=== PATIENT | female | born 1970 | race Caucasian/White ===

== ENCOUNTER 2016-10-14 15:15 | Inpatient (IN) ==
[2016-10-14] MEDS ORDERED: DUONEB (A & A) INH ONE (15:42)
[2016-10-14 16:09] LABS: BASO% 0.3 % (0.0-0.8); EOS# 0.01 X1000 (0.0-0.7); EOS% 0.1 % (0.0-10.0); HEMATOCRIT 41.4 % (37.0-47.0); HEMOGLOBIN 14.3 g/dL (12.0-16.0); IMM GRAN# 0.06 X1000 (0.0-0.04); IMM GRAN% 0.5 % (0.0-0.5); LYMPH# 1.48 X1000 (1.2-3.4); LYMPH% 11.9 % (20.5-51.1); MANUAL DIFF NEEDED? YES; MCH 32.5 PG (27-31); MCHC 34.5 g/dL (33-37); MCV 94.1 FL (81-99); MONO# 0.69 X1000 (0.11-0.59); MONO% 5.6 % (1.7-9.3); MPV 11.5 FL (7.4-10.4); NEUT% 81.6 % (42.2-75.2); PLT 176 X1000 (130-400)
[2016-10-14 16:27] LABS: AGAP 11; ALBUMIN 3.4 g/dL (3.5-5.0); ALKALINE PHOSPHATASE 75 U/L (32-104); BUN 18 mg/dL (8-22); CALCIUM 9.3 mg/dL (8.8-10.2); CHLORIDE 99 mmol/L (98-107); COSMO 271; GOT 22 U/L (10-30); GPT 23 U/L (10-36); POTASSIUM 3.1 mmol/L (3.5-5.1); SODIUM 134 mmol/L (136-145); TCO2 24 mmol/L (25-35)
[2016-10-14 16:33] LABS: LYMPHS 10 % (21-51); MONO 1 % (1-9)
--- NOTE | 2016-10-14 17:22 | Diag Imaging Result Document ---
PROCEDURE NAME: CHEST-2 VIEWS - 10/14/2016 CHEST, 2 VIEWS: Compared with 10/04/2015. Heart size is normal. The lungs appear essentially clear. There is no consolidation, pleural effusion, or pneumothorax identified. There are slight thoracic levoscoliosis and mild spondylosis noted. IMPRESSION: No evidence of acute disease.
--- NOTE | 2016-10-14 17:33 | PROVIDER DOCUMENTATION ---
HPI-Respiratory General - General Chief Complaint: Shortness of Breath Stated Complaint: "HAS PNEUMONIA" Time Seen by Provider: 10/14/16 15:41 Source: patient Allergies/Adverse Reactions: Patient Allergies Allergy/AdvReac Type Severity Reaction Status Date / Time codeine Allergy Mild itch Verified 07/07/13 17:31 Home Medications: Home Medication List Medication Instructions Recorded Confirmed Last Taken Type CephALEXIN [Keflex] 500 mg PO TID #30 bottle 07/07/13 Unknown Rx Fluoxetine [Prozac] 10 mg PO DAILY 07/07/13 07/07/13 07/07/13 History Hydrocodone/Acetaminophen [Lortab 1 each PO Q4-6H PRN PRN #0 tablet 07/07/13 Unknown Rx 5-500 Tablet] Meloxicam [Mobic] 10 mg PO 07/07/13 07/07/13 07/07/13 History Albuterol 2.5MG/Ipratrop 0.5MG 3 ml INH Q4-6H PRN PRN #14 neb 10/04/15 Unknown Rx [Duoneb] Prednisone 20 mg PO DAILY #12 tablet 10/04/15 Unknown Rx - History of Present Illness-Resp Nature of Presenting Problem: Pt is 46 y/o F presents to the ED with SOB. Pt states cough. Pt states being to two walk in clinics in the last week. Pt states receiving steroid shot and levaquin. Pt denies F. Pt states symptoms have been present for one week. Quality of Pain: reports: aching Severity in ED: reports: mild Onset/Duration: reports: 1 week ago Timing: reports: still present, intermittent Exposure: reports: unknown cause Cough Quality/Degree: reports: moderate Episode Frequency: occasional episodes Current Respiratory Medication Therapy: Initiated see nurses note Modifying Factors: improves with: nothing Associated Symptoms: reports: cough, shortness of breath. denies: chest pain/ soreness, dizziness, earache, facial pain, fever/chills, flu-like symptoms, headache, heart racing, hurts to breathe, hyperventilating, lightheadedness, muscle/bodyaches, nasal congestion, nasal drainage, sinus pain, short of breath , sore throat, sweaty, wheezing Similar Symptoms Previously?: Yes Recently seen or treated by another doctor?: Yes Review of Systems - Adult - REVIEW OF SYSTEMS - ADULT Constitutional: denies: chills, fever Eyes: denies: blurred vision, double vision Ears, Nose, Mouth & Throat: denies: ear pain, nose pain, throat pain Cardiovascular: denies: chest pain, heart murmur, irregular heart rate Respiratory: reports: cough, shortness of breath. denies: wheezing Gastrointestinal: denies: abdominal pain, diarrhea, nausea, vomiting Genitourinary: denies: dysuria, hematuria Musculoskeletal: denies: bone pain, joint pain, neck pain Integumentary: denies: hives, itching Neurological: denies: dizziness/vertigo, headache/migraines Psychiatric: reports: no symptoms reported Endocrine: reports: no symptoms reported Hematologic/Lymphatic: reports: no symptoms reported Allergic/Immunologic: reports: no symptoms reported All Other Systems: Reviewed and Negative Past History - Adult - PAST MEDICAL HISTORY-ADULT Review of Records: reports: Nursing Assessment Review, Medications Reviewed, Social history reviewed & non-contributory. Major Childhood Illnesses: reports: denies history Cardiovascular: reports: denies history Respiratory: reports: COPD Gastrointestinal: reports: denies history Obstetrical/Gynecological: reports: denies history Genitourinary: reports: denies history Musculoskeletal: reports: denies history Neurological: reports: denies history Endocrine/Immune: reports: denies history Other Conditions: reports: denies history - PRIOR SURGERIES/PROCEDURES Surgical/Procedure History: reports: reviewed, not pertinent - IMMUNIZATION STATUS Childhood Immunizations: See Nurse Assessment Flu Vaccine: See Nurse Assessment - FAMILY HISTORY Family History: reviewed, not pertinent - SOCIAL HISTORY Smoking: cigarettes, less than 1 pack/day Provider spent 3-5 mins advising pt. on dangers of tobacco.: Discussed manners to quit use, and f/u contacts for add'l counseling. Substance Use: denies Living Situation: family Physical Exam-General - PHYSICAL EXAM-ADULT Initial Vital Signs Reviewed: Yes - CONSTITUTIONAL General Appearance: appears well, alert, no apparent distress - EYES Eyes: PERRL/EOMI, pink conjunctivae, fundi clear, no AV nicking - HEAD, EARS, NOSE, MOUTH & THROAT HENMT: normocephalic/atraumatic, moist mucous membranes, normal ENT inspection, TMs normal, pharynx normal - NECK Neck: non-tender, full range of motion, supple, normal inspection - RESPIRATORY Respiratory: chest non-tender, normal breath sounds, no pleuratic chest pain, no respiratory distress, no accessory muscle use, rhonchi (bilateral) - CARDIOVASCULAR Cardiovascular: normal peripheral pulses, regular rate, rhythm, no edema, no gallop, no JVD, no murmur - GASTROINTESTINAL (ABDOMEN) Abdominal Exam: normal bowel sounds, non tender, soft, no organomegaly, no pulsatile mass - LYMPHATIC Lymphatic: no adenopathy - MUSCULOSKELETAL Back Exam: normal inspection, no CVA tenderness, no vertebral tenderness Extremity: normal range of motion, non-tender, normal gait, normal inspection, no pedal edema - SKIN Integumentary: normal color, normal turgor, warm/dry - NEUROLOGIC Neurologic: electric sign wirer II-XII nml as tested, grossly normal, no motor/sensory deficits - PSYCHIATRIC Psych/Mental Status: normal mood/affect, normal thought content, normal thought process, oriented x 3 Progress - PLAN OF CARE/RESULTS Progress/Plan/Lab Results: Laboratory Tests 10/14/16 10/14/16 10/14/16 15:40 15:40 15:40 WBC 12.42 H RBC 4.40 Hgb 14.3 Hct 41.4 MCV 94.1 MCH 32.5 H MCHC 34.5 RDW Std Deviation 12.0 Plt Count 176 MPV 11.5 H Immature Gran % (Auto) 0.5 Neut % (Auto) 81.6 H Lymph % (Auto) 11.9 L Hamilton % (Auto) 5.6 Eos % (Auto) 0.1 Baso % (Auto) 0.3 Immature Gran # (Auto) 0.06 H Neut # (Auto) 10.14 H Lymph # (Auto) 1.48 Hamilton # (Auto) 0.69 H Eos # (Auto) 0.01 Baso # (Auto) 0.04 Segmented Neutrophils 88 H Lymphocytes 10 L Monocytes 1 Atypical Lymphocytes 1.0 D-Dimer Sodium 134 L Potassium 3.1 L Chloride 99 Carbon Dioxide 24 L Anion Gap 11 BUN 18 Creatinine 0.7 Estimated GFR/1.73 m2 > 60 BUN/Creatinine Ratio 26 Glucose 121 H Calculated Osmolality 271 Calcium 9.3 Total Bilirubin 0.20 AST 22 ALT 23 Alkaline Phosphatase 75 Total Protein 7.0 Albumin 3.4 L Globulin 4.0 Albumin/Globulin Ratio 1.0 Plasma Lactate 2.0 10/14/16 17:12 WBC RBC Hgb Hct MCV MCH MCHC RDW Std Deviation Plt Count MPV Immature Gran % (Auto) Neut % (Auto) Lymph % (Auto) Hamilton % (Auto) Eos % (Auto) Baso % (Auto) Immature Gran # (Auto) Neut # (Auto) Lymph # (Auto) Hamilton # (Auto) Eos # (Auto) Baso # (Auto) Segmented Neutrophils Lymphocytes Monocytes Atypical Lymphocytes D-Dimer 0.29 Sodium Potassium Chloride Carbon Dioxide Anion Gap BUN Creatinine Estimated GFR/1.73 m2 BUN/Creatinine Ratio Glucose Calculated Osmolality Calcium Total Bilirubin AST ALT Alkaline Phosphatase Total Protein Albumin Globulin Albumin/Globulin Ratio Plasma Lactate Orders Category Date Time Status Saline Loc NOW Care 10/14/16 15:19 Active CHEST-2 VIEWS [RAD] Stat Exams 10/14/16 15:19 Completed SINUSES KAM VIEW ONLY [RAD] Stat Exams 10/14/16 16:31 Taken ABG [RESP] Routine Lab 10/14/16 17:12 Ordered BLOOD CULTURE [BLDCUL] Stat Lab 10/14/16 15:19 Ordered CBC WITH DIFF [HEME] Stat Lab 10/14/16 15:40 Completed COMPREHENSIVE METABOLIC PANEL [CHEM] Stat Lab 10/14/16 15:[address] D-DIMER [address] [COAG] Stat Lab 10/14/16 17:12 Completed LACTATE, PLASMA [CHEM] Stat Lab 10/14/16 15:40 Completed Albuterol 2.5MG/Ipratrop 0.5MG [Duoneb (A & A)] Med 10/14/16 15:42 Discontinued 3 ml INH NOW ONE Aerosol Treatments Routine Oth 10/14/16 15:42 Active Aerosol Treatments Stat Oth 10/14/16 15:42 Active Peak Flow Stat Oth 10/14/16 15:43 Active Pulse Oximetry Stat Oth 10/14/16 15:19 Active Vital Signs - 24 hr 10/14/16 10/14/16 10/14/16 15:25 16:00 16:30 Temperature 99.4 F Pulse Rate 82 79 81 Respiratory 18 18 20 Rate Blood Pressure 93/47 117/64 O2 Sat by Pulse 93 L 91 L 92 L Oximetry Laboratory Tests 10/14/16 10/14/16 10/14/16 15:40 15:40 15:40 WBC 12.42 H RBC 4.40 Hgb 14.3 Hct 41.4 MCV 94.1 MCH 32.5 H MCHC 34.5 RDW Std Deviation 12.0 Plt Count 176 MPV 11.5 H Immature Gran % (Auto) 0.5 Neut % (Auto) 81.6 H Lymph % (Auto) 11.9 L Hamilton % (Auto) 5.6 Eos % (Auto) 0.1 Baso % (Auto) 0.3 Immature Gran # (Auto) 0.06 H Neut # (Auto) 10.14 H Lymph # (Auto) 1.48 Hamilton # (Auto) 0.69 H Eos # (Auto) 0.01 Baso # (Auto) 0.04 Segmented Neutrophils 88 H Lymphocytes 10 L Monocytes 1 Atypical Lymphocytes 1.0 D-Dimer Specimen Type Sample Site pH pCO2 pO2 HCO3 Base Excess Oxyhemoglobin ABG O2 Sat (Calculated) ABG O2 Saturation ABG Carboxyhemoglobin ABG Methemoglobin Constantino Test A-a O2 Difference Total Hemoglobin Lactate Blood Gas Modality FiO2 % Sodium 134 L Potassium 3.1 L Chloride 99 Carbon Dioxide 24 L Anion Gap 11 BUN 18 Creatinine 0.7 Estimated GFR/1.73 m2 > 60 BUN/Creatinine Ratio 26 Glucose 121 H Calculated Osmolality 271 Calcium 9.3 Total Bilirubin 0.20 AST 22 ALT 23 Alkaline Phosphatase 75 Total Protein 7.0 Albumin 3.4 L Globulin 4.0 Albumin/Globulin Ratio 1.0 Plasma Lactate 2.0 10/14/16 10/14/16 17:12 17:18 WBC RBC Hgb Hct MCV MCH MCHC RDW Std Deviation Plt Count MPV Immature Gran % (Auto) Neut % (Auto) Lymph % (Auto) Hamilton % (Auto) Eos % (Auto) Baso % (Auto) Immature Gran # (Auto) Neut # (Auto) Lymph # (Auto) Hamilton # (Auto) Eos # (Auto) Baso # (Auto) Segmented Neutrophils Lymphocytes Monocytes Atypical Lymphocytes D-Dimer 0.29 Specimen Type ARTERIAL Sample Site R BRACHIAL pH 7.47 H pCO2 36 pO2 65 HCO3 26.8 H Base Excess 2.7 Oxyhemoglobin 90.6 L ABG O2 Sat (Calculated) 18.8 ABG O2 Saturation 93.5 L ABG Carboxyhemoglobin 1.90 ABG Methemoglobin 1.2 Constantino Test YES A-a O2 Difference 40.0 Total Hemoglobin 14.8 Lactate 1.70 Blood Gas Modality ROOM AIR FiO2 % 21.0 Sodium Potassium Chloride Carbon Dioxide Anion Gap BUN Creatinine Estimated GFR/1.73 m2 BUN/Creatinine Ratio Glucose Calculated Osmolality Calcium Total Bilirubin AST ALT Alkaline Phosphatase Total Protein Albumin Globulin Albumin/Globulin Ratio Plasma Lactate Laboratory Tests 10/14/16 10/14/16 10/14/16 15:40 15:40 15:40 WBC 12.42 H RBC 4.40 Hgb 14.3 Hct 41.4 MCV 94.1 MCH 32.5 H MCHC 34.5 RDW Std Deviation 12.0 Plt Count 176 MPV 11.5 H Immature Gran % (Auto) 0.5 Neut % (Auto) 81.6 H Lymph % (Auto) 11.9 L Hamilton % (Auto) 5.6 Eos % (Auto) 0.1 Baso % (Auto) 0.3 Immature Gran # (Auto) 0.06 H Neut # (Auto) 10.14 H Lymph # (Auto) 1.48 Hamilton # (Auto) 0.69 H Eos # (Auto) 0.01 Baso # (Auto) 0.04 Segmented Neutrophils 88 H Lymphocytes 10 L Monocytes 1 Atypical Lymphocytes 1.0 D-Dimer Specimen Type Sample Site pH pCO2 pO2 HCO3 Base Excess Oxyhemoglobin ABG O2 Sat (Calculated) ABG O2 Saturation ABG Carboxyhemoglobin ABG Methemoglobin Constantino Test A-a O2 Difference Total Hemoglobin Lactate Blood Gas Modality FiO2 % Sodium 134 L Potassium 3.1 L Chloride 99 Carbon Dioxide 24 L Anion Gap 11 BUN 18 Creatinine 0.7 Estimated GFR/1.73 m2 > 60 BUN/Creatinine Ratio 26 Glucose 121 H Calculated Osmolality 271 Calcium 9.3 Magnesium Total Bilirubin 0.20 AST 22 ALT 23 Alkaline Phosphatase 75 Total Protein 7.0 Albumin 3.4 L Globulin 4.0 Albumin/Globulin Ratio 1.0 Plasma Lactate 2.0 Influenza A (Rapid) Influenza B (Rapid) 10/14/16 10/14/16 10/14/16 17:12 17:18 17:40 WBC RBC Hgb Hct MCV MCH MCHC RDW Std Deviation Plt Count MPV Immature Gran % (Auto) Neut % (Auto) Lymph % (Auto) Hamilton % (Auto) Eos % (Auto) Baso % (Auto) Immature Gran # (Auto) Neut # (Auto) Lymph # (Auto) Hamilton # (Auto) Eos # (Auto) Baso # (Auto) Segmented Neutrophils Lymphocytes Monocytes Atypical Lymphocytes D-Dimer 0.29 Specimen Type ARTERIAL Sample Site R BRACHIAL pH 7.47 H pCO2 36 pO2 65 HCO3 26.8 H Base Excess 2.7 Oxyhemoglobin 90.6 L ABG O2 Sat (Calculated) 18.8 ABG O2 Saturation 93.5 L ABG Carboxyhemoglobin 1.90 ABG Methemoglobin 1.2 Constantino Test YES A-a O2 Difference 40.0 Total Hemoglobin 14.8 Lactate 1.70 Blood Gas Modality ROOM AIR FiO2 % 21.0 Sodium Potassium Chloride Carbon Dioxide Anion Gap BUN Creatinine Estimated GFR/1.73 m2 BUN/Creatinine Ratio Glucose Calculated Osmolality Calcium Magnesium Total Bilirubin AST ALT Alkaline Phosphatase Total Protein Albumin Globulin Albumin/Globulin Ratio Plasma Lactate Influenza A (Rapid) NEGATIVE Influenza B (Rapid) NEGATIVE 10/14/16 18:33 WBC RBC Hgb Hct MCV MCH MCHC RDW Std Deviation Plt Count MPV Immature Gran % (Auto) Neut % (Auto) Lymph % (Auto) Hamilton % (Auto) Eos % (Auto) Baso % (Auto) Immature Gran # (Auto) Neut # (Auto) Lymph # (Auto) Hamilton # (Auto) Eos # (Auto) Baso # (Auto) Segmented Neutrophils Lymphocytes Monocytes Atypical Lymphocytes D-Dimer Specimen Type Sample Site pH pCO2 pO2 HCO3 Base Excess Oxyhemoglobin ABG O2 Sat (Calculated) ABG O2 Saturation ABG Carboxyhemoglobin ABG Methemoglobin Constantino Test A-a O2 Difference Total Hemoglobin Lactate Blood Gas Modality FiO2 % Sodium Potassium Chloride Carbon Dioxide Anion Gap BUN Creatinine Estimated GFR/1.73 m2 BUN/Creatinine Ratio Glucose Calculated Osmolality Calcium Magnesium 1.9 Total Bilirubin AST ALT Alkaline Phosphatase Total Protein Albumin Globulin Albumin/Globulin Ratio Plasma Lactate Influenza A (Rapid) Influenza B (Rapid) - XRAY 1 XRAY: Bilateral XRAY Study: other (sinuses kam view only) Impression: Normal XRAY Interpretation: clear paranasal sinuses 2 XRAY: Bilateral XRAY Study: Chest Impression: Normal XRAY Interpretation: no evidence of acute disease - CONSULTS/PCP/HOSPITALIST Notification #1 *Consult/PCP/Hospitalist*: Dr. Gonzalez Time Discussed: 17:30 (Dr. Gonzalez accepted admit ) Reason/Comments: Dr. Luevano consulted with Dr. Gonzalez about admit of Pt Consult Disposition: Admit Departure - Departure Time of Disposition Order: 17:46 DIAGNOSIS: Tobacco abuse, Hypokalemia, Hypoxia, COPD exacerbation Disposition: ADMITTED INPATIENT 09 Certified Medical Emergency: Emergent Condition: Stable Attestation - Scribe Verification/Attestation Scribe:: Cherise Ramos Acting as Scribe for:: Andi Luevano Scribe documention review:: This chart was documented by a scribe and accurately reflects the service the provider performed and the decisions made by the provider.
[2016-10-14 17:35] LABS: BE 2.7 mmoll (-3.0-3.0); BLOOD TYPE ARTERIAL; DRAW SITE R BRACHIAL; METHB 1.2 % (0.0-1.5); O2(CT) 18.8 mL/dL (15.0-23.0); PCO2(98.6) 36 mmHg (35-45); PO2(98.6) 65 mmHg (60-100); SAMPLE BLOOD; SAO2 93.5 % (95.0-100.0); THB 14.8 g/dL (11.5-17.4); pH(98.6) 7.47 (7.35-7.45)
--- NOTE | 2016-10-14 17:43 | Diag Imaging Result Document ---
PROCEDURE NAME: SINUSES KAM VIEW ONLY - 10/14/2016 SINUS KAM VIEW: FINDINGS: No comparison exam. The paranasal sinuses appear clear. There is no air-fluid level seen. IMPRESSION: Clear paranasal sinuses.
[2016-10-14 17:45] LABS: ALLEN TEST YES; MODALITY ROOM AIR
[2016-10-14] MEDS ORDERED: NS 1,000 ML ONE (18:30)
[2016-10-14] MEDS: DUONEB (A & A) INH SCH (19:49)
[2016-10-14] MEDS: SOLU-MEDROL IV SCH (20:55)
[2016-10-14] MEDS: TUSSIONEX LIQUID PO SCH (20:56)
[2016-10-14] MEDS: NS 1,000 ML IV SCH (23:27)
[2016-10-15] MEDS: DUONEB (A & A) INH SCH ×8 (00:08→23:12)
[2016-10-15] MEDS: SOLU-MEDROL IV SCH ×4 (05:25→22:10)
[2016-10-15] MEDS ORDERED: MOTRIN PO ONE (08:09)
[2016-10-15] MEDS: PROZAC PO SCH (08:10)
[2016-10-15] MEDS: TUSSIONEX LIQUID PO SCH ×2 (08:10→22:10)
[2016-10-15] MEDS: NS 1,000 ML IV SCH ×3 (08:11→22:10)
[2016-10-15] MEDS ORDERED: KLOR-CON PO ONE (09:19)
--- NOTE | 2016-10-15 13:47 | HISTORY AND PHYSICAL ---
PRIMARY CARE PHYSICIAN: Dr. Machuca. CHIEF COMPLAINT: Shortness of breath and a nonproductive cough for greater than a week that has progressively worsened. HISTORY OF PRESENTING ILLNESS: This is a 46-year-old female who presented to [facility] ER with complaints of shortness of breath and a nonproductive cough for about a week or more. States she has been to the walk-in clinic 2 times and given steroid shot and antibiotic shot each time and she has not seen an improvement in her symptoms. She has also been doing nebulizer treatments at home 4 times a day without improvement. She is noted to be a 2 pack a day cigarette smoker and has been a smoker since she was 14 years old. When she came into the emergency room she had an O2 saturation on room air of 91-93%, temperature was 99.4 degrees, pulse 82, respirations were 18 and a blood pressure of 93/47. Her white blood cell count was mildly elevated at 12.42. She had a potassium of 3.1. Her chest x-ray showed no evidence of acute disease. She had a Sabillon view x-ray that showed clear paranasal sinuses. So she is being admitted for further evaluation and treatment. PAST MEDICAL HISTORY: COPD and depression. PAST SURGICAL HISTORY: Right wrist surgery, bilateral breast implants. FAMILY HISTORY: Noncontributory. SOCIAL HISTORY: She currently lives with family. Is a 2 pack a day smoker and has been one since 14 years old. Denies any alcohol or illicit drug use. ALLERGIES: Codeine. HOME MEDICATIONS: She was taking duo nebs p.r.n., Keflex liquid 250 mg/5 mL is being held, Lortab 5 p.r.n. is being held, Mobic 15 mg is being held, prednisone 20 mg p.o. daily is held, we will continue her Prozac at 10 mg p.o. daily. LABORATORY DATA: Showed a white blood cell count of 12.42, hemoglobin of 14.3, hematocrit 41.4, platelets 176,000. D-dimer of 0.29. ABG with a pH of 7.47, pCO2 of 36, PO2 65, bicarb of 26.8. Sodium of 134, potassium 3.1, chloride 99, CO2 24, BUN of 18, creatinine 0.7, glucose 121, magnesium of 1.9, plasma lactate was 2. Influenza A and B were negative. Chest x-ray showed no acute disease. Sabillon view x-ray showed clear paranasal sinuses. REVIEW OF SYSTEMS: She was positive for a subjective fever, body aches, cough that is nonproductive, shortness of breath. Denied any chest pain, abdominal pain, constipation, diarrhea, or burning or hurting with urination. PHYSICAL EXAMINATION: VITAL SIGNS: On arrival she had a temperature of 99.4 degrees, pulse 82, respirations 18, blood pressure 93/47, saturating 93% on room air. Currently she is 99% on 2 L via nasal cannula. GENERAL: This is a 46-year-old female who is lying in the bed and answers questions appropriately. HEENT: Normocephalic and atraumatic. Pupils are equal, round, reactive to light. INCOMPLETE REPORT -- DICTATION ENDS HERE. Dictated by JULIAN Maza for Noe Gonzalez MD
[2016-10-15] MEDS ORDERED: ZOFRAN IV PRN (13:55)
[2016-10-15] MEDS ORDERED: TYLENOL PO PRN (13:55)
--- NOTE | 2016-10-15 13:55 | HISTORY AND PHYSICAL ---
PHYSICAL EXAM: GENERAL: This is a 46-year-old female who is lying in the bed and answers questions appropriately. HEENT: Normocephalic and atraumatic. Pupils are equal, round, reactive to light. Extraocular movements are intact. Oropharynx and nares are clear. NECK: Supple. LUNGS: With wheezing throughout entire posterior lung deng with equal lung expansion and chest wall movement. HEART: With regular rate and rhythm. No murmurs, rubs, or gallops. ABDOMEN: Soft, nontender, nondistended. Bowel sounds are present x4 quadrants. EXTREMITIES: There is no clubbing, cyanosis, or edema. NEUROLOGICAL: The cranial nerves 2-12 are grossly intact. ASSESSMENT: 1. An acute chronic obstructive pulmonary disease exacerbation. 2. Hypoxia. 3. Tobacco abuse. 4. Hypokalemia. PLAN: She was admitted to the medical unit at [facility]. Placed on telemetry. Regular diet. Will give her a 21 mg nicotine patch transdermally daily as needed. DuoNeb q.4 hours. Normal saline at 125 mL an hour. Solu-Medrol at 60 mg IV q.6 and we will wean that as appropriate. Tussionex cough syrup 5 mL p.o. q.12 hours. Continue her home medication of Prozac. We will give her 40 mEq of potassium now and recheck a CBC and a BMP in the a.m. Dictated by JULIAN Maza for Noe Gonzalez MD pt examined, agree with above, will add mucomyst and expectorant and follow clinically, counselled at length on tobacco cessation, would also recommend outpt pfts APENOT MTDD
[2016-10-15] MEDS: MUCINEX PO SCH ×2 (14:34→22:10)
[2016-10-15] MEDS: PULMICORT INH SCH (19:34)
[2016-10-15] MEDS: MUCOMYST 20% SCH (22:14)
[2016-10-15] MEDS: NICODERM PATCH TD PRN (22:18)
[2016-10-16] MEDS: DUONEB (A & A) INH SCH ×6 (04:29→23:05)
[2016-10-16] MEDS ORDERED: TUMS PO ONE (05:17)
[2016-10-16] MEDS: SOLU-MEDROL IV SCH ×3 (05:25→18:40)
[2016-10-16] MEDS: NS 1,000 ML IV SCH ×2 (06:35→09:51)
[2016-10-16 07:05] LABS: AGAP 9; BUN 11 mg/dL (8-22); CALCIUM 8.6 mg/dL (8.8-10.2); CHLORIDE 106 mmol/L (98-107); COSMO 276; POTASSIUM 3.2 mmol/L (3.5-5.1); SODIUM 136 mmol/L (136-145); TCO2 21 mmol/L (25-35)
[2016-10-16 07:17] LABS: BASO% 0.1 % (0.0-0.8); HEMATOCRIT 34.1 % (37.0-47.0); HEMOGLOBIN 11.6 g/dL (12.0-16.0); IMM GRAN# 0.12 X1000 (0.0-0.04); IMM GRAN% 0.7 % (0.0-0.5); LYMPH# 0.99 X1000 (1.2-3.4); LYMPH% 5.9 % (20.5-51.1); MANUAL DIFF NEEDED? YES; MCH 32.3 PG (27-31); MONO# 0.69 X1000 (0.11-0.59); MONO% 4.1 % (1.7-9.3); MPV 11.7 FL (7.4-10.4); NEUT% 89.2 % (42.2-75.2); PLT 199 X1000 (130-400); RBC 3.59 XMIL (4.2-5.4)
[2016-10-16 07:46] LABS: BANDS 2 % (0-1); LYMPHS 7 % (21-51); MONO 1 % (1-9)
[2016-10-16] MEDS: PROZAC PO SCH (09:47)
[2016-10-16] MEDS: TUSSIONEX LIQUID PO SCH ×2 (09:47→20:35)
[2016-10-16] MEDS: MUCINEX PO SCH ×2 (09:47→20:35)
[2016-10-16] MEDS: PULMICORT INH SCH (10:14)
[2016-10-16] MEDS: MUCOMYST 20% SCH (10:14)
[2016-10-16] MEDS ORDERED: DIFLUCAN PO ONE (10:21)
[2016-10-16 11:01] LABS: URINE CULTURE PL NEEDED? NO; URINE SOURCE VOIDED
[2016-10-16 11:06] LABS: BILIRUBIN URINE NEGATIVE (NEGATIVE); BLOOD URINE NEGATIVE (NEGATIVE); CLARITY CLEAR (CLEAR); COLOR YELLOW; GLUCOSE URINE NEGATIVE (NEGATIVE); LEUKOCYTES URINE NEGATIVE (NEGATIVE); NITRITE URINE NEGATIVE (NEGATIVE); PROTEIN URINE NEGATIVE (NEGATIVE); UROBILINOGEN URINE NORMAL
[2016-10-16 11:11] LABS: URINE EPITHELIAL CELLS <10 /HPF (<10)
[2016-10-16] MEDS ORDERED: NS 1,000 ML IV SCH (15:08)
--- NOTE | 2016-10-16 15:53 | PROGRESS NOTE ---
DATE: 10/16/2016 SUBJECTIVE: The patient states that she is less short of breath today. She denies any chest pain, palpitations, any PND or orthopnea. OBJECTIVE: Vital Signs: Blood pressure is 111/52 with a heart rate of 63, respirations are 18, temperature is 97.8 degrees oral, with room air saturations of 96% to 97% and saturations of 97% to 98% on 2 liters nasal cannula. Cardiovascular: Regular rate and rhythm. S1 and S2 appreciated. Pulmonary: Breath sounds with wheezing scattered throughout. Equal lung expansion. No increased work of breathing noted. Gastrointestinal: The abdomen is soft, nontender, nondistended. Bowel sounds in all 4 quadrants. Extremities: No clubbing, cyanosis, or edema. Calves are nontender. Pulses are palpable x4. LABORATORY DATA: WBC is 16.8 with hemoglobin 11.6, hematocrit 34.1, and platelets of 199,000. Sodium is 136, potassium 3.2, BUN 11, creatinine 0.6 with a glucose of 175. ASSESSMENT: 1. Acute on chronic obstructive pulmonary disease exacerbation. 2. Hypoxia, resolved. 3. Tobacco abuse. 4. Hypokalemia. 5. Leukocytosis. PLAN: We will continue with telemetry. Continue with pulmonary toilet. Hydration, with steroids to taper. We will trend electrolytes and replete as appropriate. Continue nicotine patch. Further treatments pending hospital course. Dictated by JULIAN Briceno for Noe Gonzalez MD pt examined, agree with above, home 1-2 days, may need home o2 APENOT MTDD
[2016-10-16] MEDS: NICODERM PATCH TD PRN (17:38)
[2016-10-16] MEDS: AMBIEN PO PRN (18:40)
[2016-10-17] MEDS: NS 1,000 ML IV SCH (00:41)
[2016-10-17] MEDS: SOLU-MEDROL IV SCH ×2 (03:02→15:39)
[2016-10-17] MEDS: DUONEB (A & A) INH SCH ×6 (04:01→23:49)
[2016-10-17 07:41] LABS: AGAP 9; BUN 11 mg/dL (8-22); CALCIUM 8.6 mg/dL (8.8-10.2); CHLORIDE 105 mmol/L (98-107); COSMO 273; POTASSIUM 3.9 mmol/L (3.5-5.1); SODIUM 136 mmol/L (136-145); TCO2 22 mmol/L (25-35)
[2016-10-17] MEDS: PULMICORT INH SCH ×2 (08:06→20:00)
[2016-10-17] MEDS: MUCOMYST 20% INH SCH ×2 (08:06→20:00)
[2016-10-17] MEDS: MUCINEX PO SCH ×2 (08:40→20:36)
[2016-10-17] MEDS: TUSSIONEX LIQUID PO SCH ×2 (08:40→20:37)
[2016-10-17] MEDS: PROZAC PO SCH (08:40)
--- NOTE | 2016-10-17 09:26 | PROGRESS NOTE ---
DATE: 10/17/2016 SUBJECTIVE: The patient states she is feeling a little bit better, although still having cough, congestion, shortness of breath, still fatigued and short of breath with any exertion. She has not been getting out of bed with any regular basis. OBJECTIVE: Vital Signs Reviewed: Temperature 98 degrees, pulse 74, respiratory 20, BP 122/51, satting 90% on 2 L. General: Patient is well developed, well nourished. She is currently in mild respiratory distress. She is awake, alert. Neck: Supple. CV: Regular rate. Chest: Positive wheezing diffusely bilaterally. Decreased breath sounds bilaterally, but equal and appears better movement than when she initially was admitted. Abdomen: Soft. Extremities: Moves all extremities. LABS: BMP essentially normal. ASSESSMENT: 1. Acute on chronic obstructive pulmonary disease exacerbation. The patient continues to slowly improve. She is currently on 40 mg intravenous Solu-Medrol every 8 hours. We will decrease this to every 12 hours. 2. Hypoxia. Patient currently is still on oxygen. Seems to have difficulty weaning off. We will ask respiratory to assist with this. 3. Chronic tobacco abuse. Again, discussed with patient the perils of smoking, as well as ways to stop. 4. Hypokalemia, resolved. 5. Mild leukocytosis likely secondary to current Solu-Medrol. PLAN: We will continue to wean patient's Solu-Medrol, continue to wean her breathing treatments. Again, discussed with patient the perils of smoking. Further orders as needed.
[2016-10-17] MEDS ORDERED: G.I. COCKTAIL PO ONE (15:32)
[2016-10-17] MEDS: AMBIEN PO PRN (19:19)
[2016-10-17] MEDS: NICODERM PATCH TD PRN (19:22)
[2016-10-18] MEDS: SOLU-MEDROL IV SCH (02:36)
[2016-10-18] MEDS: DUONEB (A & A) INH SCH ×2 (03:44→08:04)
[2016-10-18 06:03] LABS: HEMATOCRIT 35.2 % (37.0-47.0); HEMOGLOBIN 11.7 g/dL (12.0-16.0); MCH 31.6 PG (27-31); MCHC 33.2 g/dL (33-37); MCV 95.1 FL (81-99); MPV 11.5 FL (7.4-10.4); RBC 3.7 XMIL (4.2-5.4)
[2016-10-18 06:56] LABS: AGAP 10; ALBUMIN 3.2 g/dL (3.5-5.0); ALKALINE PHOSPHATASE 60 U/L (32-104); BUN 15 mg/dL (8-22); CALCIUM 8.7 mg/dL (8.8-10.2); CHLORIDE 101 mmol/L (98-107); COSMO 275; GOT 27 U/L (10-30); GPT 73 U/L (10-36); SODIUM 137 mmol/L (136-145); TCO2 26 mmol/L (25-35); TOTAL PROTEIN 6.1 g/dL (6.3-8.3)
[2016-10-18] MEDS: PULMICORT INH SCH (08:03)
[2016-10-18] MEDS: MUCOMYST 20% INH SCH (08:04)
[2016-10-18] MEDS: MUCINEX PO SCH (09:29)
[2016-10-18] MEDS: PROZAC PO SCH (09:29)
[2016-10-18] MEDS: TUSSIONEX LIQUID PO SCH (09:29)
--- NOTE | 2016-10-18 10:15 | DISCHARGE SUMMARY ---
ADMISSION DATE: 10/14/2016 DISCHARGE DATE: 10/18/2016 SUBJECTIVE: Patient notes that she is feeling much better this morning. DISCHARGE DIAGNOSES: 1. Acute on chronic obstructive pulmonary disease with exacerbation improving. 2. Hypoxemia resolved. 3. Moderate respiratory distress, resolved; patient currently back to baseline. 4. Chronic tobacco abuse. 5. Hypokalemia. 6. Leukocytosis continues to improve. 7. Mild protein calorie malnutrition. CONSULTATIONS: None. HOSPITAL COURSE: The patient is a 46-year-old female, who was admitted as noted on the HPI. Treated in the usual fashion. Unfortunately, she has a long history of smoking. Again, discussed with her each stated she was in the hospital the perils smoking as well as ways to stop. The patient's home medications were continued to while she was in the hospital. Thankfully she had an uneventful although prolonged hospital course. On discharge, she is awake, alert. She is in no distress. She is feeling better. She is still having mild wheezing although greatly improved air movement bilaterally. DISPOSITION: Thirty-five minutes was spent in discharge planning and instructions. Discussed with the patient the perils of smoking. Discussed with her ways to stop. Discussed with her that she will need to continue albuterol nebulized treatments at least 3 times a day for the next several days. She can use it every 2-4 hours as needed. She should continue breathing treatments scheduled until she is no longer needing breakthrough. She will follow up with Dr. Machuca her primary care physician in 1-2 weeks. No changes were made in patient's home medications. She will be sent home on a mymission2 Dosepak and a Z-Lam.
[2016-10-18 11:37] VITALS: BP 110/72
== END 2016-10-18 11:56 | disposition home or self-care (01) | DRG 191 ==
LOC: P.ED 15:15 → OBSVTOIN 18:53 → P.MEDSURG 18:53
PROVIDERS: ATTEND Family Medicine
DX: J44.1 Chronic obstructive pulmonary disease with (acute) exacerbation (principal); E44.1 Mild protein-calorie malnutrition; R09.02 Hypoxemia; E87.6 Hypokalemia; D72.829 Elevated white blood cell count, unspecified; F32.9 Major depressive disorder, single episode, unspecified; F17.210 Nicotine dependence, cigarettes, uncomplicated; Z79.899 Other long term (current) drug therapy; Z79.52 Long term (current) use of systemic steroids; Z79.1 Long term (current) use of non-steroidal anti-inflammatories (NSAID); T38.0X5A Adverse effect of glucocorticoids and synthetic analogues, initial encounter
CPT/HCPCS: 70210; 71020; 80048; 80053; 81001; 82805; 83605; 83735; 85025; 85027; 85379; 87040; 87804; 94640; 94761; 96360; J2920; J2930; J7030

== ENCOUNTER 2019-09-06 08:01 | Observation (INO) ==
[2019-09-06 08:31] LABS: BASO# 0.03 X1000 (0.0-0.2); BASO% 0.3 % (0.0-0.8); EOS# 0.11 X1000 (0.0-0.7); EOS% 1.3 % (0.0-10.0); HEMATOCRIT 40.7 % (37.0-47.0); HEMOGLOBIN 13.3 g/dL (12.0-16.0); IMM GRAN# 0.01 X1000 (0.0-0.04); IMM GRAN% 0.1 % (0.0-0.5); LYMPH# 2.24 X1000 (1.2-3.4); LYMPH% 25.9 % (20.5-51.1); MCH 30.1 PG (27-31); MCHC 32.7 g/dL (33-37); MCV 92.1 FL (81-99); MONO# 0.83 X1000 (0.11-0.59); MONO% 9.6 % (1.7-9.3); MPV 11.3 FL (7.4-10.4); NEUT# 5.44 X1000 (1.4-6.5); NEUT% 62.8 % (42.2-75.2); PLT 257 X1000 (130-400); RBC 4.42 XMIL (4.2-5.4); RDW 12.7 % (11.5-14.5); WBC 8.66 X1000 (4.8-10.8)
[2019-09-06] MEDS ORDERED: G.I. COCKTAIL PO ONE (08:52)
[2019-09-06 08:57] LABS: AGAP 12; ALKALINE PHOSPHATASE 96 U/L (32-104); BUN 13 mg/dL (8-22); CALCIUM 8.7 mg/dL (8.8-10.2); CHLORIDE 103 mmol/L (98-107); COSMO 276; CREATININE 0.8 mg/dL (0.5-0.9); ESTIMATED GFR > 60; GLUCOSE 137 mg/dL (70-104); GOT 274 U/L (10-30); GPT 204 U/L (10-36); LIPASE 28 U/L (13-60); SODIUM 137 mmol/L (136-145); TCO2 22 mmol/L (25-35); TOTAL PROTEIN 7.4 g/dL (6.3-8.3)
[2019-09-06] MEDS ORDERED: TORADOL IV ONE (09:01)
[2019-09-06] MEDS ORDERED: ZOFRAN IV ONE (09:02)
[2019-09-06 09:38] LABS: URINE SOURCE CLEAN CATCH
[2019-09-06 09:41] LABS: BILIRUBIN URINE SMALL (NEGATIVE); BLOOD URINE NEGATIVE (NEGATIVE); COLOR YELLOW; GLUCOSE URINE NEGATIVE (NEGATIVE); KETONE URINE NEGATIVE (NEGATIVE); LEUKOCYTES URINE NEGATIVE (NEGATIVE); NITRITE URINE NEGATIVE (NEGATIVE); PH URINE 8.5; PROTEIN URINE 30 mg/dL (NEGATIVE); SP GRAVITY URINE 1.024; TURBIDITY URINE HAZY (CLEAR); UROBILINOGEN URINE 6 mg/dL (NORMAL)
--- NOTE | 2019-09-06 09:55 | Diag Imaging Result Doc PS360 ---
CT ABD/PELVIS W/IV CONT ONLY - 09/06/2019 INDICATION: abd pain COMPARISON: None FINDINGS: The lung bases are clear and the heart size is normal. There is questionable wall thickening of the gallbladder. No calcified gallstones. No biliary dilation. The liver, pancreas, spleen, adrenals, and kidneys are normal. No bowel obstruction or inflammation. Normal appendix. There is an enhancing myometrial mass at the left side of the uterine fundus measuring 3.5 cm. This is statistically most likely a uterine fibroid. There is also a small left ovarian cyst measuring 1.9 cm. No free fluid. Urinary bladder and rectum are normal. There are moderate degenerative changes of the spine. No acute or suspicious bony lesion. IMPRESSION: Possible gallbladder wall thickening. Gallbladder ultrasound recommended. This exam was performed using automated exposure control, adjustment of mA or kV according to patient size, and/or use of iterative reconstruction technique Electronically signed by Hima Chen 09/06/2019 9:53 AM
[2019-09-06 09:56] LABS: UR AMPHETAMINES QUAL NONE DETECTED (NONE DETECT); UR BARBITUATES QUAL NONE DETECTED (NONE DETECT); UR BENZODIAZEPIN QUAL NONE DETECTED (NONE DETECT); UR CANNABINOIDS QUAL PRESUMPTIVE POSITIVE (NONE DETECT); UR COCAINE QUAL NONE DETECTED (NONE DETECT); UR METHADONE QUAL NONE DETECTED (NONE DETECT); UR METHAMPHETAMINE QUAL NONE DETECTED (NONE DETECT); UR OPIATES QUAL NONE DETECTED (NONE DETECT); UR OXYCODONE QUAL NONE DETECTED (NONE DETECT); UR PCP QUAL NONE DETECTED (NONE DETECT); UR PROPOXYPHENE QUAL NONE DETECTED (NONE DETECT); UR TCA QUAL NONE DETECTED (NONE DETECT)
[2019-09-06 10:38] LABS: URINE RBC <10 /HPF (<10); URINE WBC <10 /HPF (<10)
[2019-09-06 10:39] LABS: UR EPITHELIAL CELLS <10 /HPF (<10); URINE BACTERIA 2+ /HPF
[2019-09-06] MEDS ORDERED: MORPHINE IV ONE (11:21)
--- NOTE | 2019-09-06 12:35 | Diag Imaging Result Doc PS360 ---
US GB < RUQ (LIMITED) - 09/06/2019 INDICATION: questionable GB thickening TECHNIQUE: COMPARISON: CT from earlier today FINDINGS: There are several stones in the gallbladder. There is mild gallbladder distention. There is gallbladder wall thickening. The gallbladder wall thickness measures about 6 mm. Common bile duct measures 6 mm. The liver, pancreas, and right kidney are normal. Aorta, IVC, and main portal vein are patent. Sonographic Castro sign is positive. IMPRESSION: Acute cholecystitis. Electronically signed by Hima Chen 09/06/2019 12:32 PM
[2019-09-06] MEDS ORDERED: SODIUM CHLORIDE 0.9% INJ ONE (12:44)
[2019-09-06] MEDS ORDERED: PHENERGAN IV ONE (12:44)
--- NOTE | 2019-09-06 12:44 | PROVIDER DOCUMENTATION ---
This chart was entered by Lyn Mccormick Scribe, acting as scribe for Tomas Cheney CRNP. HPI-Abdominal Pain/GI Problem - General Chief Complaint: Abdominal Pain Stated Complaint: VOMITTING / ABD PAIN Time Seen by Provider: 09/06/19 08:48 Source: patient, family (daughter) Allergies/Adverse Reactions: Patient Allergies Allergy/AdvReac Type Severity Reaction Status Date / Time codeine Allergy Mild itch Verified 07/07/13 17:31 Home Medications: Home Medication List Medication Instructions Recorded Confirmed Last Taken Type Duloxetine HCl 05/19/18 Unknown History - History of Present Illness-ABD Nature of Presenting Problems: Pt is a 49 yof who has come into the ED with c/o abdominal pain that started around 3 am. Pt states that she has a burning pain that radiates thru to her back and that her abdomen hurts when touched. Pt states she thinks it is her gallbladder acting up. Pt is mildly distressed but alert and nontoxic in appearance. Abdominal Pain Onset Location: reports: epigastric Pain Radiation: reports: back Quality of Pain: reports: burning Severity in ED: reports: mild Onset/Duration: reports: abrupt, 4-6 hours ago Timing: reports: still present, constant Activities at Onset: reports: sleep Modifying Factors: worse with: movement, palpation Associated Symptoms: reports: back/neck pain, nausea. denies: diarrhea, vomiting Last BM: 24 hours ago Dark Stools Present?: reports: none noticed Rectal Bleeding: reports: none Bruising or Bleeding Gums?: No Review of Systems - Adult - REVIEW OF SYSTEMS - ADULT Constitutional: denies: chills, fever Eyes: reports: no symptoms reported Ears, Nose, Mouth & Throat: reports: no symptoms reported Cardiovascular: denies: chest pain, syncope Respiratory: denies: shortness of breath, wheezing Gastrointestinal: reports: see HPI, abdominal pain, nausea. denies: diarrhea, vomiting Genitourinary: reports: no symptoms reported Musculoskeletal: reports: no symptoms reported Integumentary: reports: no symptoms reported Neurological: reports: no symptoms reported Psychiatric: reports: no symptoms reported Endocrine: reports: no symptoms reported Hematologic/Lymphatic: reports: no symptoms reported Allergic/Immunologic: reports: no symptoms reported All Other Systems: Reviewed and Negative Past History - Adult - PAST MEDICAL HISTORY-ADULT Review of Records: reports: Old Records Reviewed, Nursing Assessment Review, Medications Reviewed, Social history reviewed & non-contributory. Major Childhood Illnesses: reports: denies history Cardiovascular: reports: denies history Respiratory: reports: COPD Gastrointestinal: reports: denies history Obstetrical/Gynecological: reports: denies history Genitourinary: reports: denies history Musculoskeletal: reports: denies history Neurological: reports: denies history Endocrine/Immune: reports: denies history Other Conditions: reports: denies history - PRIOR SURGERIES/PROCEDURES Surgical/Procedure History: reports: reviewed, not pertinent, orthopedic (extremity) (R wrist), breast - IMMUNIZATION STATUS Childhood Immunizations: See Nurse Assessment Flu Vaccine: See Nurse Assessment - FAMILY HISTORY Family History: reviewed, not pertinent - SOCIAL HISTORY Smoking: quit greater than 1 year Substance Use: denies Living Situation: family Physical Exam-General - PHYSICAL EXAM-ADULT Initial Vital Signs Reviewed: Yes (Temp 97.5) - CONSTITUTIONAL General Appearance: alert, mild distress, other (crying at bedside) - EYES Eyes: PERRL/EOMI, pink conjunctivae - HEAD, EARS, NOSE, MOUTH & THROAT HENMT: normocephalic/atraumatic, moist mucous membranes, normal ENT inspection - NECK Neck: non-tender, full range of motion, supple, normal inspection - RESPIRATORY Respiratory: chest non-tender, lungs clear, normal breath sounds, no pleuratic chest pain, no respiratory distress, no accessory muscle use - CARDIOVASCULAR Cardiovascular: normal peripheral pulses, regular rate, rhythm, no edema - GASTROINTESTINAL (ABDOMEN) Abdominal Exam: soft, tenderness (generalized, more prominent in the RUQ), Castro's sign - MUSCULOSKELETAL Back Exam: normal inspection, CVA tenderness Extremity: normal range of motion, non-tender, normal gait, normal inspection, no pedal edema - SKIN Integumentary: normal color, normal turgor, warm/dry - PSYCHIATRIC Psych/Mental Status: normal thought content, normal thought process, oriented x 3, tearful Progress - PLAN OF CARE/RESULTS Progress/Plan/Lab Results: Vital Signs - 8 hr 09/06/19 08:06 Temperature 97.5 F L Pulse Rate 75 Respiratory Rate 18 Blood Pressure 144/74 O2 Sat by Pulse Oximetry 97 Laboratory Results - last 24 hr 09/06/19 09/06/19 08:19 08:19 WBC 8.66 RBC 4.42 Hgb 13.3 Hct 40.7 MCV 92.1 MCH 30.1 MCHC 32.7 L RDW Std Deviation 12.7 Plt Count 257 MPV 11.3 H Immature Gran % (Auto) 0.1 Neut % (Auto) 62.8 Lymph % (Auto) 25.9 [place] % (Auto) 9.6 H Eos % (Auto) 1.3 Baso % (Auto) 0.3 Immature Gran # (Auto) 0.01 Neut # (Auto) 5.44 Lymph # (Auto) 2.24 [place] # (Auto) 0.83 H Eos # (Auto) 0.11 Baso # (Auto) 0.03 Sodium 137 Potassium 4.0 Chloride 103 Carbon Dioxide 22 L Anion Gap 12 BUN 13 Creatinine 0.8 Estimated GFR/1.73 m2 > 60 BUN/Creatinine Ratio 16 Glucose 137 H Calculated Osmolality 276 Calcium 8.7 L Total Bilirubin 1.80 H AST 274 H ALT 204 H Alkaline Phosphatase 96 Total Protein 7.4 Albumin 4.0 Globulin 3.0 Albumin/Globulin Ratio 1.0 Lipase 28 Orders Category Date Time Status CT ABD/PELVIS W/IV CONT ONLY [CT] Stat Exams 09/06/19 09:01 Ordered AMYLASE [CHEM] Stat Lab 09/06/19 08:19 Received CBC WITH DIFF [HEME] Stat Lab 09/06/19 08:19 Completed COMPREHENSIVE METABOLIC PANEL [CHEM] Stat Lab 09/06/19 08:19 Completed LIPASE [CHEM] Stat Lab 09/06/19 08:19 Completed URINALYSIS W/POSS RFLX CULT [URINALYSIS] Stat Lab 09/06/19 08:10 Uncollected URINE DRUG SCREEN PL Stat Lab 09/06/19 08:56 Uncollected Ketorolac [Toradol] Med 09/06/19 09:01 Once 30 mg IV NOW ONE Lido/Guzman Alk/Al&mg Hydrox [G.i. Cocktail] Med 09/06/19 08:52 Discontinued 30 ml PO NOW ONE Ondansetron [Zofran] Med 09/06/19 09:02 Once 4 mg IV NOW ONE Result Diagrams: 09/06/19 08:19 09/06/19 08:19 - REASSESSMENT Reassessment #1 Time Reassessed: 10:30 Status: improving (more comfortable, waiting on US) - CT/MRI 1 CT Study: Abdomen Impression: See EMR Report (CT ABD/PELVIS W/IV CONT ONLY - 09/06/2019 INDICATION: abd pain COMPARISON: None FINDINGS: The lung bases are clear and the heart size is normal. There is questionable wall thickening of the gallbladder. No calcified gallstones. No biliary dilation. The liver, pancreas, spleen, adrenals, and kidneys are normal. No bowel obstruction or inflammation. Normal appendix. There is an enhancing myometrial mass at the left side of the uterine fundus measuring 3.5 cm. This is statistically most likely a uterine fibroid. There is also a small left ovarian cyst measuring 1.9 cm. No free flu id. Urinary bladder and rectum are normal. There are moderate degenerative changes of the spine. No acute or suspicious bony lesion. IMPRESSION: Possible gallbladder wall thickening. Gallbladder ultrasound recommended. This exam was performed using automated exposure control, adjustment of mA or kV according to patient size, and/or use of iterative reconstruction technique Electronically signed by Hima Chen 09/06/2019 9:53 AM 09/06/19 0953 Interpreting Physician: Hima Chen MD Dictated Date/Time: 09/06/19 0950 cc: Tomas Cheney;) - ULTRASOUND (By Radiology) 1 US Study: Abdomen Impression: See EMR Report - CONSULTS/PCP/HOSPITALIST Notification #1 *Consult/PCP/Hospitalist*: Dr Orozco Time Discussed: 12:42 Reason/Comments: acute juan Consult Disposition: Admit (transfer to [facility] admit to hospitalist) #2 Consult: Dr Gilbert Time Discussed: 12:43 Reason/Comments: Acute juan Departure - Departure Date of Disposition Decision: 09/06/19 Time of Disposition Decision: 12:43 DIAGNOSIS: Acute cholecystitis Disposition: ADMITTED INPATIENT 09 Certified Medical Emergency: Emergent Condition: Stable Additional Instructions: ED Follow Up Instructions: You have been treated by a care provider in the Emergency Department. These instructions are being provided to you so you can have an understanding of how to care for yourself upon discharge. Upon discharge from the Emergency Department, you are responsible for making arrangements for follow-up care by a physician of your choice. Take all prescribed medications as directed. Return to the Emergency Department immediately for any new or worsening symptoms. You may call the Physician Referral phone number at [phone] to obtain a list of Physicians who are taking new patients. Referrals and Follow-Ups: None,PCP [Primary Care Provider] - - Critical Care Note This patient required my direct & personal management of CC.: No Attestation - Physician/ LAURA Attestation Patient care was provided by Advanced Practice Provider:: Yes Advanced Practice Provider:: Tomas Cheney Advanced Practice Provider documentation review:: The Mid-level provider documentation, treatment plan and medical decision making was reviewed by the physician who agrees with all treatment and medical decision making by the MLP. The physician spent face to face time with patient:: No Advanced Practice Provider documentation review:: Supervising physician onsite and consulted in the evaluation and care of this patient. The physician did not have a face to face encounter with the patient. This chart was documented by the indicated scribe, (Lyn Mccormick, Patricia) and accurately reflects the services I performed and decisions made by me, Tomas Cheney CRNP, as attested by the provider's signature.
[2019-09-06] MEDS: MORPHINE IV PRN ×3 (15:25→22:59)
[2019-09-06] MEDS: NS 1,000 ML IV SCH (15:26)
[2019-09-06] MEDS ORDERED: MOTRIN PO PRN (16:05)
[2019-09-06] MEDS: OFIRMEV 1000 MG/ISOTONIC SOLN 1,000 MG/100 ML BOTTLE IV SCH ×2 (17:10→21:19)
[2019-09-06] MEDS: ZOFRAN IV PRN ×2 (17:49→23:06)
[2019-09-06] MEDS: ZOSYN 3.375 GM in NS 50 ML IV SCH ×2 (18:16→23:23)
--- NOTE | 2019-09-06 20:35 | HISTORY AND PHYSICAL ---
CHIEF COMPLAINT: Abdominal pain HISTORY OF PRESENT ILLNESS: The patient is a 49-year-old female who presented to the hospital with increased abdominal pain, nausea and vomiting. She states it started around 3:00 this morning. She states she has never had any issues prior to this event. She has been able to eat anything she wanted without issues. ALLERGIES: Codeine. MEDICATIONS: Duloxetine. REVIEW OF SYSTEMS: The patient notes that her pain started approximately 4 or 5 hours ago very abruptly, with back pain and nausea. Denies diarrhea, constipation, melena or hematochezia. Denies fevers or chills. Denies any chronic abdominal pain. Denies headaches, blurred vision or change in vision. Denies any focalized numbness, tingling or weakness in her extremities. Denies dysuria. No frequency or urgency. PAST MEDICAL HISTORY: COPD, depression. PAST SURGICAL HISTORY: She has had orthopedic surgery on her right wrist as well as breast surgery. FAMILY HISTORY: Noncontributory. SOCIAL HISTORY: She stopped smoking greater than a year ago. Denies any other illicit substance use. PHYSICAL EXAMINATION: VITAL SIGNS: Reviewed. Temperature 97.5 degrees, pulse 75, respiratory rate 18, BP 144/74, saturation 97% on room air. GENERAL: The patient is awake, pleasant. She is in no respiratory distress but is somewhat ill- appearing secondary to her nausea. HEENT: Normocephalic. NECK: Supple. CARDIOVASCULAR: Regular rate. CHEST: Clear, nonlabored. ABDOMEN: Soft, obese. Tender, right upper quadrant. No guarding. No rebound. EXTREMITIES: Moves all extremities. NEUROLOGIC: No changes. ASSESSMENT: 1. Acute cholecystitis. 2. Nausea and vomiting. 3. Right upper quadrant abdominal pain. PLAN: We are going to admit the patient to the hospital, transfer to [facility] for General Surgery input. We will continue Zofran and Phenergan as needed. cc: Elliott Gilbert MD [facility]
[2019-09-06] MEDS: NORCO-10 PO PRN (20:58)
--- NOTE | 2019-09-06 22:18 | CONSULTATION ---
DATE OF CONSULTATION: 09/06/2019 HISTORY OF PRESENT ILLNESS: Ms. Mitra Shah is a 49-year-old white female who has been experiencing epigastric pain radiating to her back since early this morning. She presented to [facility], was evaluated using CT scan and ultrasound which suggested gallstones, possible acute cholecystitis. She was transferred from [place] to [facility] for further care. MEDICATIONS: Duloxetine. ALLERGIES: Codeine. PAST MEDICAL HISTORY: Orthopedic surgery, right wrist; breast surgery. SOCIAL HISTORY: She used to smoke. I spoke with her . Her is scheduled for major colon surgery in [place] Sunday. She has family who have had their gallbladders out. FAMILY HISTORY: Reviewed with the patient and noncontributory, except for cholecystitis in her family. REVIEW OF SYSTEMS: A 14-point review of systems was performed and was essentially negative except for the history of present illness. PHYSICAL EXAMINATION: On exam, her heart rate is 75, blood pressure 144/74, O2 saturation 97%. She is afebrile, 97.5 degrees. Ms. Shah is a middle-aged white female. She is in no acute distress. No jaundice. No oral lesions. Satisfactory dentition. No cervical or supraclavicular lymphadenopathy. Her heart has a regular rate. Lungs were clear to auscultation and percussion bilaterally. Her abdomen was soft. She was tender in the epigastrium and right upper quadrant. I could not palpate her gallbladder. She has had no previous surgery. No costovertebral tenderness. Rectal and vaginal exams were not performed. She does have palpable peripheral pulses. No peripheral edema. Neurologically, she is alert and oriented x3 and appropriate. LABORATORY DATA: Her white blood cell count is normal. Electrolytes were within normal limits. BUN 13, creatinine 0.8. Liver function tests were elevated. Total bilirubin 1.8. AST and ALT 274 and 204. DIAGNOSTIC DATA: CT scan suggests possible gallbladder wall thickening. Abdominal ultrasound suggested acute cholecystitis with several stones in her gallbladder. PLAN: We will resuscitate her with IV fluids. She will get IV antibiotics, IV Zosyn. We will give her medications for pain and nausea, and plan to proceed with laparoscopic cholecystectomy in the morning. I discussed the procedure in detail with the patient and her family at the bedside including its risks of bleeding, infection, injury to the extrahepatic bile ducts requiring reoperation, conversion of laparoscopic to open cholecystectomy, bile leak requiring reoperation for drainage, and injury to intra-abdominal contents for trocar placement. She understands the need for surgery and its risks, and she wants to proceed. cc: Therese Orozco MD
[2019-09-07] MEDS: OFIRMEV 1000 MG/ISOTONIC SOLN 1,000 MG/100 ML BOTTLE IV SCH ×4 (04:07→22:32)
[2019-09-07] MEDS: MORPHINE IV PRN ×3 (05:02→11:49)
[2019-09-07] MEDS: ZOFRAN IV PRN ×2 (05:02→09:34)
[2019-09-07] MEDS: ZOSYN 3.375 GM in NS 50 ML IV SCH ×3 (05:31→18:21)
[2019-09-07] MEDS ORDERED: FENTANYL ONE (06:36)
[2019-09-07] MEDS ORDERED: VERSED ONE (06:36)
[2019-09-07] MEDS ORDERED: DIPRIVAN 1% ONE (06:37)
[2019-09-07] MEDS ORDERED: DECADRON ONE (06:43)
[2019-09-07] MEDS ORDERED: ZOFRAN ONE (06:43)
[2019-09-07] MEDS ORDERED: STERILE WATER INJ. ONE (06:43)
[2019-09-07] MEDS ORDERED: XYLOCAINE-MPF 2% ONE (06:43)
[2019-09-07] MEDS ORDERED: QUELICIN (DOSE) ONE (06:43)
[2019-09-07] MEDS ORDERED: NEO-SYNEPHRINE ONE (06:43)
[2019-09-07] MEDS ORDERED: MARCAINE 0.25% ONE (06:47)
[2019-09-07] MEDS ORDERED: LR 1,000 ML ONE (06:48)
[2019-09-07] MEDS ORDERED: SODIUM CHLORIDE 0.9% ONE (06:48)
--- NOTE | 2019-09-07 08:45 | Diag Imaging Result Doc PS360 ---
OPERATIVE CHOLANGIOGRAM - 09/07/2019 INDICATION: GB DISEASE TECHNIQUE: The exam was performed by the patient's surgeon. One image was submitted. COMPARISON: None FINDINGS: Contrast was infused into the cystic duct. This outlines a normal common bile duct. There is good passage of contrast into the duodenum. No strictures or filling defects. IMPRESSION: No complication. Electronically signed by Hima Chen 09/07/2019 8:43 AM
--- NOTE | 2019-09-07 09:55 | OPERATIVE NOTE ---
PROCEDURE DATE: 09/07/2019 PREOPERATIVE DIAGNOSIS: Acute gangrenous cholecystitis. POSTOPERATIVE DIAGNOSIS: Acute gangrenous cholecystitis. PRINCIPAL PROCEDURE: Laparoscopic cholecystectomy with intraoperative cholangiogram. SURGEON: Therese Orozco M.D. ANESTHESIA: General in addition to local anesthetic. ESTIMATED BLOOD LOSS: 50 mL. DRAINS: None. INDICATIONS: Ms. Mitra Shah is a 49-year-old, white female, who presented to [facility] Emergency Department yesterday, and was transferred to [facility] with acute cholecystitis. Overnight, she received IV fluids and antibiotics, and cholecystectomy was recommended. FINDINGS: Her gallbladder was acutely inflamed and becoming gangrenous. We performed an intraoperative cholangiogram, which showed free flow of the dye into the duodenum, without evidence of extrahepatic stones or obstruction. There was no abnormal dilatation of the extrahepatic bile ducts. The liver appeared to be healthy, as did the surface of the bowel. No other intra-abdominal pathology was noted, and we felt we did the operation safely. DESCRIPTION OF PROCEDURE: The patient was brought to the operating room, placed supine, received general anesthesia, and was intubated. Her abdomen was prepped and draped within a sterile field. She was already on IV Zosyn. We began the procedure by making a curvilinear incision below the umbilicus. The Veress needle was introduced through this incision, into the abdomen. Pneumoperitoneum was established. The Veress needle was removed, and I placed an 11 mm trocar through this incision, into the abdomen. The camera was placed through this port, and the abdomen was explored for injury; there was none. Three other trocars were placed under direct vision of the camera. I placed an 11 mm trocar just to the right of the midline, and two 5 mm trocars in our midclavicular and anterior axillary lines. I had to decompress the gallbladder initially, so I placed a needle and suction into the fundus of the gallbladder, and decompressed it so that we could manipulate it. I used a forceps with teeth to grab the fundus, and retracted superiorly along with the right lobe of the liver. Another grasper was used to grab the body of the gallbladder, and the triangle of Calot was bluntly dissected. We identified the cystic artery initially, and a clip was placed distally, 2 proximally. It was divided. We identified the cystic duct along its length. I placed a clip at the cystic duct/gallbladder junction. I made a small incision in the cystic duct using hook scissors, and a taut intraoperative cholangiogram catheter was used to perform the cholangiogram with the findings above. Once the cholangiogram was completed, the catheter was removed, and 2 clips were placed proximally on the cystic duct. We divided the cystic duct between clips using hook scissors. We used spatula cautery and scissors to remove the gallbladder from the liver bed. There was edema around the gallbladder. The gallbladder was gangrenous, except down close to the cystic duct. We removed the gallbladder from the liver, and then I used an endobag to remove the gallbladder through the umbilical incision, which I had to enlarge slightly to get the swollen gallbladder out. I placed a trocar back through this incision, placed the camera back in intra-abdominally. The area of operation was thoroughly irrigated, and the irrigation was removed with suction. There was no evidence of ongoing bleeding or bile leak. No drains were left. All trocars were removed under direct vision of the camera. The pneumoperitoneum was allowed to dissipate. I used two [id number] 2-0 Vicryl stitches to reapproximate the fascia below the umbilicus. All skin was closed with 4-0 Monocryl subcuticular stitches. Steri-Strips were applied. Plans are for her to go to the recovery room, and then she will be readmitted to the floor. I spoke with her family after the procedure. cc: Therese Orozco MD
[2019-09-07] MEDS: NORCO-10 PO PRN ×2 (10:46→16:03)
[2019-09-07] MEDS: CYMBALTA PO SCH (11:47)
--- NOTE | 2019-09-07 17:09 | PROGRESS NOTE ---
DATE: 09/07/2019 INTERVAL HISTORY: Patient is status post laparoscopic cholecystectomy this morning for cholecystitis. Doing very well postop. On a clear liquid diet with no difficulty. Only complaint is no bowel movement for the last several days. No further nausea, vomiting. Afebrile. No respiratory difficulties. REVIEW OF SYSTEMS: Twelve point review of systems negative except as per interval history. VITAL SIGNS: T-max 99.5 degrees, pulse 69, respirations 16, blood pressure 110/66, O2 saturation 96% on room air. PHYSICAL EXAMINATION: General: No acute distress. Vital signs: As above. HEENT: Normocephalic, atraumatic. Moist mucous membranes. No cervical adenopathy. Cardiovascular: Regular rate and rhythm. No murmurs noted. Pulmonary: Clear to auscultation bilaterally. No wheezing, rales, or rhonchi. Abdomen: Soft. Minimal expected postop tenderness. Bowel sounds decreased but are present. Extremities: Peripheral pulses intact. No clubbing or cyanosis. Neurologic: Cranial nerves grossly intact. No focal deficits identified. Psychiatric: Normal mood and affect. Awake, alert, oriented x3. ASSESSMENT AND PLAN: 1. Cholecystitis status post a laparoscopic cholecystectomy this morning. Remains on Zosyn currently. Continues to do well. Will hopefully be able to advance diet. Discharge home on oral antibiotic for a few days tomorrow. 2. Nausea and vomiting secondary to above, now resolved. 3. Obesity. Counseled on diet and exercise. 4. Constipation. Ordered MiraLAX. 5. Chronic obstructive pulmonary disease. No sign of exacerbation at this time. 6. Former tobacco use. Patient encouraged to continue cessation.
[2019-09-07] MEDS: MIRALAX PO SCH (18:31)
[2019-09-07] MEDS: NS 1,000 ML IV SCH (22:35)
[2019-09-08] MEDS: ZOSYN 3.375 GM in NS 50 ML IV SCH ×2 (00:42→06:15)
[2019-09-08] MEDS: NORCO-10 PO PRN (05:10)
[2019-09-08] MEDS: OFIRMEV 1000 MG/ISOTONIC SOLN 1,000 MG/100 ML BOTTLE IV SCH (05:35)
[2019-09-08 08:00] VITALS: BP 121/69
[2019-09-08] MEDS: MIRALAX PO SCH (08:03)
[2019-09-08] MEDS: CYMBALTA PO SCH (08:03)
--- NOTE | 2019-09-08 09:44 | DISCHARGE SUMMARY ---
ADMISSION DATE: 09/06/2019 DISCHARGE DATE: 09/08/2019 ADMITTING DIAGNOSIS: Acute cholecystitis. DISCHARGE DIAGNOSIS: Acute gangrenous cholecystitis with cholelithiasis. PRINCIPAL PROCEDURE: Laparoscopic cholecystectomy with intraoperative cholangiogram on 09/07/2019. DISCHARGE DISABILITY: Full . DISCHARGE DISPOSITION: She will return to our outpatient offices in 7 to 10 days for followup. DISCHARGE MEDICATIONS: She is to return to her home medications. DISCHARGE DIET: Regular. HOSPITAL COURSE: Ms Mitra Shah is a 49-year-old white female who presented to our emergency department with epigastric and right upper quadrant pain. CT scan and abdominal ultrasound suggested acute cholecystitis. She was transferred from [facility] to [facility] for further care. She received IV fluids and antibiotics overnight and then on 09/07/2019 she underwent a laparoscopic cholecystectomy for acute cholecystitis. An intraoperative cholangiogram was done at the time of surgery and that cholangiogram was normal. We felt we did the operation safely. No drains were left and after surgery she went to the recovery room and then back to her room on the [address] [place] [address] Lr. On postop day 1, she was tolerating liquids and even cheese dip. Her trocar sites were intact. Her abdomen was soft. She we easily moved around in the room and she wanted to be discharged home. She knows to contact me with any problems such as increasing abdominal pain, nausea, vomiting, abdominal distention or fever. She will return to my outpatient office in 7 to 10 days for followup. cc: Therese Orozco MD
--- NOTE | 2019-09-08 22:55 | DISCHARGE SUMMARY ---
ADMISSION DATE: 09/06/2019 DISCHARGE DATE: 09/08/2019 ADDENDUM: The patient was seen doing well. She had acute cholecystitis. Underwent laparoscopic cholecystectomy. She was evaluated the day of discharge and seems to be doing well. Discharged with follow up with surgery. Given medications per Dr. Orozco. cc: Noe Gonzalez MD
== END 2019-09-08 10:56 | disposition home or self-care (01) ==
LOC: P.ED 08:01 → 4N 08:01 → SUATTDRO 13:32
PROVIDERS: ATTEND Internal Medicine